=== PATIENT | female | born 1985 | race Caucasian/White ===

== ENCOUNTER 2017-03-07 21:05 | Emergency (ER) | payer MEDICAID ==
[2017-03-07] MEDS ORDERED: Nitroglycerin 0.4 MG Tab.SL ONE (21:18)
[2017-03-07] MEDS ORDERED: Aspirin 81 MG Tab.Chew PO ONE (21:18)
[2017-03-07] MEDS ORDERED: Aspirin 81 MG Tab.Chew ONE (21:18)
--- NOTE | 2017-03-07 21:26 | EDM.PDOC ---
ED HPI GENERAL MEDICAL PROBLEM - General Stated Complaint: CHEST PAIN Time Seen by Provider: 03/07/17 21:05 Source of Information: Reports: Patient History Limitations: Reports: No Limitations - History of Present Illness INITIAL COMMENTS - FREE TEXT/NARRATIVE: Patient presents with chest pain that started at 1300 (8 hours ago). She says it feels like someone is sitting on her chest. She had some left arm pain and now it feels a little numb. She has anxiety and gets panic attacks so she took her Xanax and Klonopin but no help. She has Type II DM. - Related Data Allergies Allergy/AdvReac Type Severity Reaction Status Date / Time aspirin Allergy Acid Reflux Verified 03/07/17 21:33 azithromycin Allergy Hives Verified 03/07/17 21:33 [From Zithromax Z-Walt] Dairy Products Allergy Stomach Verified 03/07/17 21:33 Upset gluten Allergy Abdominal Verified 03/07/17 21:33 Pain Influenza Virus Vaccines Allergy Cannot Verified 03/07/17 21:33 Remember shellfish derived Allergy Anaphylactic Verified 03/07/17 21:33 Shock tramadol Allergy Hives Verified 03/07/17 21:33 Home Meds: Home Meds PNV95/Ferrous Fumarate/FA [ Multivitamins] 1 tab PO DAILY 08/14/14 [ History] Sertraline HCl [Sertraline HCl] 200 mg PO DAILY 08/14/14 [History] Omeprazole [Omeprazole] 20 mg PO BID 10/20/14 [History] rOPINIRole HCl [Requip] 1 mg PO BEDTIME 10/20/14 [History] Albuterol [Ventolin HFA] 2 puff INH Q4H PRN 01/20/15 [History] Ferrous Sulfate 325 mg PO DAILY 01/20/15 [History] Gabapentin [Neurontin] 900 mg PO BID 01/20/15 [History] Loratadine [Claritin] 10 mg PO DAILY 01/20/15 [History] Montelukast Sodium [Singulair] 10 mg PO BEDTIME 01/20/15 [History] Topiramate 25 mg PO DAILY 01/20/15 [History] Topiramate 50 mg PO BEDTIME 01/20/15 [History] Baclofen 5 mg PO TID 08/09/16 [History] risperiDONE [RisperiDAL] 2 mg PO BEDTIME 08/09/16 [History] ALPRAZolam [Xanax] 0.25 mg PO TID PRN 03/07/17 [History] ClonazePAM [KlonoPIN] 0.5 mg PO BID 03/07/17 [History] Past Medical History HEENT History: Reports: Impaired Vision, Otitis Media Cardiovascular History: Reports: Hypertension Respiratory History: Reports: Asthma Gastrointestinal History: Reports: GERD Musculoskeletal History: Reports: Arthritis, Back Pain, Chronic, Neck Pain, Chronic, Other (See Below) Other Musculoskeletal History: trigeminal neuralgia, chronic knee and back pain , restless leg syndrome Neurological History: Reports: Headaches, Chronic, Migraines, Other (See Below) Other Neuro History: trigeminal neuralgia Psychiatric History: Reports: Anxiety, Bipolar, Schizophrenia Hematologic History: Reports: Other (See Below) Other Hematologic History: Patient is a Denominational-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 - Infectious Disease History Infectious Disease History: Reports: Chicken Pox, Influenza - Past Surgical History Head Surgeries/Procedures: Reports: None HEENT Surgical History: Reports: None Respiratory Surgical History: Reports: None GI Surgical History: Reports: None Neurological Surgical History: Reports: None Musculoskeletal Surgical History: Reports: None Social & Family History - Family History Family Medical History: Noncontributory - Tobacco Use Smoking Status *Q: Never Smoker Second Hand Smoke Exposure: No - Caffeine Use Caffeine Use: Reports: Coffee, Soda - Alcohol Use Days Per Week of Alcohol Use: 0 - Recreational Drug Use Recreational Drug Use: No ED ROS GENERAL - Review of Systems Review Of Systems: See Below Constitutional: Denies: Fever, Chills, Diaphoresis HEENT: Denies: Throat Pain, Vision Change Respiratory: Denies: Shortness of Breath, Wheezing, Cough Cardiovascular: Reports: Chest Pain. Denies: Lightheadedness, Syncope GI/Abdominal: Reports: Nausea. Denies: Abdominal Pain, Vomiting : Denies: Dysuria, Flank Pain Musculoskeletal: Reports: Arm Pain (left). Denies: Neck Pain, Shoulder Pain Skin: Denies: Cyanosis, Jaundice, Mottled, Pallor, Diaphoresis Neurological: Denies: Confusion, Dizziness, Headache, Seizure, Syncope, Trouble Speaking Psychiatric: Reports: Anxiety. Denies: Agitation, Confusion ED EXAM, GENERAL - Physical Exam Exam: See Below Exam Limited By: No Limitations General Appearance: Alert, WD/WN, No Apparent Distress Eye Exam: Bilateral Eye: EOMI, Normal Inspection, PERRL Ears: Normal External Exam, Hearing Grossly Normal Nose: Normal Inspection, No Blood Throat/Mouth: Normal Inspection, Normal Lips, Normal Voice, No Airway Compromise Head: Atraumatic, Normocephalic Neck: Normal Inspection, Supple, Non-Tender, Full Range of Motion Respiratory/Chest: No Respiratory Distress, Lungs Clear, Normal Breath Sounds, No Accessory Muscle Use, Other (Palpation over the mid-sternum reproduces her symptom of chest heaviness, she says. There is also some tenderness of the adjacent left anterior ribs.). No: Crackles, Rales, Rhonchi, Wheezing, Stridor Cardiovascular: Regular Rate, Rhythm, No Murmur GI/Abdominal: Normal Bowel Sounds, Soft, Non-Tender, No Organomegaly, No Distention Back Exam: Full Range of Motion. No: CVA Tenderness (L) Extremities: Normal Inspection, Normal Range of Motion, Non-Tender, No Pedal Edema Neurological: Alert, Oriented, Normal Cognition, No Motor/Sensory Deficits Psychiatric: Normal Affect, Normal Mood Skin Exam: Warm, Dry, Intact, Normal Color, No Rash Course - Vital Signs Last Recorded V/S: Last Vital Signs Temp 96 F 03/08/17 01:20 Pulse 75 03/08/17 01:20 Resp 18 03/08/17 01:20 BP 121/80 03/08/17 01:20 Pulse Ox 97 03/08/17 01:20 - Orders/Labs/Meds Labs: Laboratory Tests 03/07/17 03/07/17 03/08/17 Range/Units 21:25 21:25 00:39 WBC 11.2 H (5.0-10.0) 10^3/uL RBC 5.18 (3.80-5.50) 10^6/uL Hgb 15.6 (12.0-16.0) g/dL Hct 45.0 (37.0-47.0) % MCV 86.9 (82.0-92.0) fL MCH 30.0 (27.0-31.0) pg MCHC 34.5 (32.0-36.0) g/dL RDW 12.9 (11.5-14.5) % Plt Count 267 (150-300) 10^3/uL MPV 7.6 (7.4-10.4) fL Neut % (Auto) 74.8 H (50.0-70.0) % Lymph % (Auto) 19.3 L (20.0-40.0) % [place] % (Auto) 4.2 (2.0-8.0) % Eos % (Auto) 1.3 (1.0-3.0) % Baso % (Auto) 0.4 (0.0-1.0) % Neut # (Auto) 8.4 H (2.5-7.0) 10^3/uL Lymph # (Auto) 2.2 (1.0-4.0) 10^3/uL [place] # (Auto) 0.5 (0.1-0.8) 10^3/uL Eos # (Auto) 0.1 (0.1-0.3) 10^3/uL Baso # (Auto) 0.0 (0.0-0.1) 10^3/uL Sodium 140 (136-145) mmol/L Potassium 3.4 (3.3-5.3) mmol/L Chloride 104 (98-115) mmol/L Carbon Dioxide 25.0 (21.0-32.0) mmol/L BUN 8 (6-25) mg/dL Creatinine 1.03 (0.51-1.17) mg/dL Est Cr Clr Drug Dosing 72.52 mL/min Estimated GFR (MDRD) > 60 mL/min Glucose 141 H (70-110) mg/dL Calcium 8.8 (8.7-10.3) mg/dL Troponin I 0.07 0.07 (0.00-0.070) ng/mL Meds: Medications Discontinued Medications Generic Name Dose Route Start Last Admin Trade Name Freq PRN Reason Stop Dose Admin Aspirin 324 mg 03/07/17 21:18 03/07/17 21:25 Aspirin PO 03/07/17 21:19 324 mg ONETIME ONE Administration Aspirin Confirm 03/07/17 21:18 03/07/17 22:39 Aspirin Administered 03/07/17 21:19 Not Given Dose 81 mg .ROUTE .STK-MED ONE Lorazepam 0.5 mg 03/07/17 22:55 Ativan PO ONETIME PRN Anxiety Nitroglycerin 0.4 mg 03/07/17 21:18 03/07/17 21:48 Nitrostat SL 03/07/17 21:29 0.4 mg Q5M PRN Administration Chest Pain Nitroglycerin Confirm 03/07/17 21:18 03/07/17 22:39 Nitrostat Administered 03/07/17 21:19 Not Given Dose 0.4 mg .ROUTE .STK-MED ONE Sodium Chloride 5 ml 03/07/17 22:13 Syrex Flush FLUSH Q8HR PRN Keep Vein Open - Re-Assessments/Exams Free Text/Narrative Re-Assessment/Exam: 03/07/17 22:46 Trop 0.07, EKG shows no ST changes. CXR normal. Patient says the chest pressure was 6/10 on arrival but no pain, then she started to have a little pain which went away with nitro. She now has no pain and the pressure is less than 1/10. We discussed all the findings and I feel this is most likely non- cardiac in etiology. However since it did seem to respond to nitro I recommend keeping her for a second troponin. She is okay with this. She is also a little anxious and will let us know if she wants a dose of Lorazepam while waiting for the second troponin. Pt is stable and says now she has no pressure in her chest. Departure - Departure Time of Disposition: 01:00 (03/08/17) Disposition: Home, Self-Care 01 Condition: Good Clinical Impression: Acute chest wall pain, Anxiety Instructions: Nonspecific Chest Pain, [id number] Referrals: Pilar Escobar COLD MILL SUPERVISOR [Primary Care Provider] - Forms: ED Department Discharge Additional Instructions: 1. Drink 8 cups of water daily. 2. Continue with your anxiety medications as directed. 3. Follow up with your PCP regarding the cardiac questions and possible cardiac referral. 4. Return to ER as needed.
[2017-03-07] MEDS: Nitroglycerin 0.4 MG Tab.SL SL PRN ×2 (21:31→21:48)
[2017-03-07 22:02] LABS: CHLORIDE,CL 104 mmol/L (98-115); SODIUM,NA 140 mmol/L (136-145)
[2017-03-07] MEDS ORDERED: Sodium Chloride 0.9% 5 ML Syringe FLUSH PRN (22:13)
[2017-03-07] MEDS ORDERED: LORazepam 0.5 MG Tab PO PRN (22:55)
[2017-03-08 01:51] VITALS: BP 121/80
== END 2017-03-08 01:33 | disposition home or self-care (01) ==
LOC: KA.ED 21:05
DX: R07.89 Other chest pain (principal); F41.9 Anxiety disorder, unspecified; I10 Essential (primary) hypertension; J45.909 Unspecified asthma, uncomplicated; K21.9 Gastro-esophageal reflux disease without esophagitis; M19.90 Unspecified osteoarthritis, unspecified site; H54.7 Unspecified visual loss; Z79.899 Other long term (current) drug therapy; Z88.1 Allergy status to other antibiotic agents; Z88.8 Allergy status to other drugs, medicaments and biological substances; Z91.011 Allergy to milk products; Z91.013 Allergy to seafood; Z88.2 Allergy status to sulfonamides; Z88.6 Allergy status to analgesic agent
CPT/HCPCS: 36415; 71020; 80048; 84484; 85025; 93005; 99285; A9270

== ENCOUNTER 2017-11-16 17:35 | Emergency (ER) | payer MEDICAID ==
[2017-11-16] MEDS ORDERED: Sodium Chloride 0.9% 1,000 ML IV ONE (17:47)
[2017-11-16] MEDS ORDERED: Dexamethasone 4 MG/ML SDV IVPUSH ONE (17:48)
[2017-11-16] MEDS ORDERED: Ondansetron 4 MG/2 ML SDV IVPUSH ONE (18:07)
[2017-11-16] MEDS ORDERED: Ketorolac 30 MG/ML SDV IVPUSH ONE (18:08)
--- NOTE | 2017-11-16 18:15 | EDM.PDOC ---
ED HPI GENERAL MEDICAL PROBLEM - General Chief Complaint: General Stated Complaint: SWITCHED MEDS IN PAIN Time Seen by Provider: 11/16/17 18:06 Source of Information: Reports: Patient History Limitations: Reports: No Limitations - History of Present Illness INITIAL COMMENTS - FREE TEXT/NARRATIVE: Pt is a 31-year-old female who presents to the emergency department this afternoon with a complaint of facial pain secondary to chronic trigeminal neuralgia and recently has been taken off narcotics. Per patient, she states that the neurologist discontinued hydrocodone and she was seen by her PCP this week and pain has been gradually increasing since. Patient states now that she has nausea, vomiting and diarrhea. Patient is requesting prescription for hydrocodone. Patient is on chronic depression medication, and patient is allergic to tramadol. Patient denies chest pain, shortness of breath, any trauma, fever, difficulty swallowing, abdominal pain, or blood in stool. Onset: Gradual Duration: Day(s): Location: Reports: Face Improves with: Reports: None Worsens with: Reports: Movement Context: Denies: Exercise, Lifting, Sick Contact, Trauma - Related Data Allergies Allergy/AdvReac Type Severity Reaction Status Date / Time aspirin Allergy Acid Reflux Verified 11/16/17 19:21 azithromycin Allergy Hives Verified 11/16/17 19:21 [From Zithromax Z-Walt] Dairy Products Allergy Stomach Verified 11/16/17 19:21 Upset gluten Allergy Abdominal Verified 11/16/17 19:21 Pain Influenza Virus Vaccines Allergy Cannot Verified 11/16/17 19:21 Remember shellfish derived Allergy Anaphylactic Verified 11/16/17 19:21 Shock tramadol Allergy Hives Verified 11/16/17 19:21 Home Meds: Home Meds PNV95/Ferrous Fumarate/FA [ Multivitamins] 1 tab PO DAILY 08/14/14 [ History] Sertraline HCl [Sertraline HCl] 200 mg PO DAILY 08/14/14 [History] Omeprazole [Omeprazole] 20 mg PO BID 10/20/14 [History] rOPINIRole HCl [Requip] 1 mg PO BEDTIME 10/20/14 [History] Albuterol [Ventolin HFA] 2 puff INH Q4H PRN 01/20/15 [History] Ferrous Sulfate 325 mg PO DAILY 01/20/15 [History] Gabapentin [Neurontin] 900 mg PO BID 01/20/15 [History] Loratadine [Claritin] 10 mg PO DAILY 01/20/15 [History] Montelukast Sodium [Singulair] 10 mg PO BEDTIME 01/20/15 [History] Topiramate 25 mg PO DAILY 01/20/15 [History] Topiramate 50 mg PO BEDTIME 01/20/15 [History] Baclofen 5 mg PO TID 08/09/16 [History] risperiDONE [RisperiDAL] 2 mg PO BEDTIME 08/09/16 [History] ALPRAZolam [Xanax] 0.25 mg PO TID PRN 03/07/17 [History] ClonazePAM [KlonoPIN] 0.5 mg PO BID 03/07/17 [History] Past Medical History HEENT History: Reports: Impaired Vision, Otitis Media Cardiovascular History: Reports: Hypertension Other Cardiovascular History: EKG changes indicating past MT Respiratory History: Reports: Asthma Gastrointestinal History: Reports: GERD BEHAVIORAL INTERVENTION SPECIALIST History: Reports: Other (See Below) Other OB/BYN History: uses a diaphragm Musculoskeletal History: Reports: Arthritis, Back Pain, Chronic, Neck Pain, Chronic, Other (See Below) Other Musculoskeletal History: trigeminal neuralgia, chronic knee and back pain , restless leg syndrome Neurological History: Reports: Headaches, Chronic, Migraines, Other (See Below) Other Neuro History: trigeminal neuralgia Psychiatric History: Reports: Anxiety, Bipolar, Schizophrenia Endocrine/Metabolic History: Reports: Diabetes, Type II, Hypothyroidism, Obesity /BMI 30+ Hematologic History: Reports: Other (See Below) Other Hematologic History: Patient is a Sabianism-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 - Infectious Disease History Infectious Disease History: Reports: Chicken Pox, Influenza - Past Surgical History Head Surgeries/Procedures: Reports: None HEENT Surgical History: Reports: None Respiratory Surgical History: Reports: None GI Surgical History: Reports: None Neurological Surgical History: Reports: None Musculoskeletal Surgical History: Reports: None Social & Family History - Family History Family Medical History: Noncontributory - Tobacco Use Smoking Status *Q: Never Smoker Second Hand Smoke Exposure: No - Caffeine Use Caffeine Use: Reports: Coffee, Soda - Alcohol Use Days Per Week of Alcohol Use: 0 - Recreational Drug Use Recreational Drug Use: No ED ROS GENERAL - Review of Systems Review Of Systems: ROS reveals no pertinent complaints other than HPI. Constitutional: Reports: No Symptoms HEENT: Reports: No Symptoms Respiratory: Reports: No Symptoms Cardiovascular: Reports: No Symptoms Endocrine: Reports: No Symptoms GI/Abdominal: Reports: Diarrhea, Nausea, Vomiting. Denies: Abdominal Pain, Bloody Stool, Difficulty Swallowing, Hematemesis, Hematochezia : Reports: No Symptoms Musculoskeletal: Reports: Other (Facial pain) Skin: Reports: No Symptoms Neurological: Reports: Tingling Psychiatric: Reports: Agitation, Anxiety, Depression Hematologic/Lymphatic: Reports: No Symptoms Immunologic: Reports: No Symptoms ED EXAM, GENERAL - Physical Exam Exam: See Below Exam Limited By: No Limitations General Appearance: Alert, WD/WN, Mild Distress Eye Exam: Bilateral Eye: Normal Inspection Nose: Normal Inspection, Normal Mucosa, No Blood Throat/Mouth: Normal Inspection, Normal Lips, Normal Oropharynx, Normal Voice, No Airway Compromise Head: Atraumatic Neck: Normal Inspection, Supple, Non-Tender. No: Lymphadenopathy (L), Lymphadenopathy (R) Respiratory/Chest: No Respiratory Distress, Lungs Clear, Normal Breath Sounds, No Accessory Muscle Use, Chest Non-Tender Cardiovascular: Regular Rate, Rhythm, No Murmur GI/Abdominal: Normal Bowel Sounds, Soft, Non-Tender Extremities: Normal Inspection Neurological: Alert, Oriented, CN II-XII Intact, Normal Cognition, Other ( Exaggerated attempt not to follow directions.) Skin Exam: Warm, Dry, Intact, Normal Color, No Rash Lymphatic: No Adenopathy Course - Orders/Labs/Meds Orders: Active Orders 24 hr Category Date Time Status CBC WITH AUTO DIFF [HEME] Stat Lab 11/16/17 18:06 Ordered COMPREHENSIVE METABOLIC PN,CMP [CHEM] Stat Lab 11/16/17 18:06 Ordered DRUG SCREEN, URINE [URCHEM] Stat Lab 11/16/17 18:06 Ordered QUANTITATIVE BHCG [REF] Stat Lab 11/16/17 18:08 Ordered UA W/MICROSCOPIC [URIN] Stat Lab 11/16/17 18:06 Ordered Sodium Chloride 0.9% [Normal Saline] 1,000 ml Med 11/16/17 17:47 Active IV .BOLUS Medication Orders Sodium Chloride (Normal Saline) 1,000 mls @ 999 mls/hr IV .BOLUS ONE Stop: 11/16/17 18:47 Meds: Medications Generic Name Dose Route Start Last Admin Trade Name Freq PRN Reason Stop Dose Admin Sodium Chloride 1,000 mls @ 999 mls/hr 11/16/17 17:47 Normal Saline IV 11/16/17 18:47 .BOLUS ONE Discontinued Medications Generic Name Dose Route Start Last Admin Trade Name Ana PRN Reason Stop Dose Admin Dexamethasone 8 mg 11/16/17 17:48 Dexamethasone IVPUSH 11/16/17 17:49 ONETIME ONE Ketorolac Tromethamine 30 mg 11/16/17 18:08 Toradol IVPUSH 11/16/17 18:09 ONETIME ONE Ondansetron HCl 4 mg 11/16/17 18:07 Zofran IVPUSH 11/16/17 18:08 ONETIME ONE - Re-Assessments/Exams Free Text/Narrative Re-Assessment/Exam: 11/16/17 19:21 Patient afebrile, nontoxic appearing, vital signs stable, discomfort relieved. Patient acting and speaking appropriately. Patient will follow-up at [facility] tomorrow for consideration of narcotics. Departure - Departure Time of Disposition: 19:22 Disposition: Home, Self-Care 01 Condition: Good Clinical Impression: Medication refill, Drug-seeking behavior, Trigeminal neuralgia - Discharge Information Instructions: Trigeminal Neuralgia, Acute Pain, Adult Referrals: Pilar Escobar INSURANCE UNDERWRITING ASSISTANT [Primary Care Provider] - Forms: ED Department Discharge Additional Instructions: Follow-up at [facility] tomorrow for recheck and prescription consideration. Return to the emergency department sooner if symptoms continue or worsen. - My Orders Last 24 Hours: My Active Orders 11/16/17 17:47 Sodium Chloride 0.9% [Normal Saline] 1,000 ml IV .BOLUS 11/16/17 18:06 CBC WITH AUTO DIFF [HEME] Stat COMPREHENSIVE METABOLIC PN,CMP [CHEM] Stat DRUG SCREEN, URINE [URCHEM] Stat UA W/MICROSCOPIC [URIN] Stat 11/16/17 18:08 QUANTITATIVE BHCG [REF] Stat - Assessment/Plan Last 24 Hours: My Active Orders 11/16/17 17:47 Sodium Chloride 0.9% [Normal Saline] 1,000 ml IV .BOLUS 11/16/17 18:06 CBC WITH AUTO DIFF [HEME] Stat COMPREHENSIVE METABOLIC PN,CMP [CHEM] Stat DRUG SCREEN, URINE [URCHEM] Stat UA W/MICROSCOPIC [URIN] Stat 11/16/17 18:08 QUANTITATIVE BHCG [REF] Stat Assessment:: Medication refill Plan: Follow-up with PCP
[2017-11-16 18:48] LABS: CHLORIDE,CL 100 mmol/L (98-115); SODIUM,NA 136 mmol/L (136-145)
[2017-11-16 19:15] VITALS: BP 128/72
== END 2017-11-16 20:03 | disposition home or self-care (01) ==
LOC: KA.ED 17:35
DX: G50.0 Trigeminal neuralgia (principal); Z76.5 Malingerer [conscious simulation]; Z76.0 Encounter for issue of repeat prescription; I10 Essential (primary) hypertension; E11.9 Type 2 diabetes mellitus without complications; E03.9 Hypothyroidism, unspecified; Z88.6 Allergy status to analgesic agent; Z88.1 Allergy status to other antibiotic agents; Z91.011 Allergy to milk products; Z88.5 Allergy status to narcotic agent; Z91.013 Allergy to seafood; Z79.899 Other long term (current) drug therapy
CPT/HCPCS: 80053; 80305; 81001; 84702; 85025; 96361; 96374; 96375; 99283; J1100; J1885; J2405; J7030

== ENCOUNTER 2017-11-25 17:41 | Emergency (ER) | payer MEDICAID ==
[2017-11-25 18:18] VITALS: BP 129/72
--- NOTE | 2017-11-25 18:28 | EDM.PDOC ---
ED HPI GENERAL MEDICAL PROBLEM - General Chief Complaint: General Stated Complaint: SEIZURE?? Time Seen by Provider: 11/25/17 18:03 Source of Information: Reports: Patient History Limitations: Reports: No Limitations - History of Present Illness INITIAL COMMENTS - FREE TEXT/NARRATIVE: Patient is a 31-year-old female who presents to the emergency department this afternoon with a complaint of suspected seizure. Mother states that she was looking into space, shaking, and this lasted approximately 1-1/2 minutes. Patient has no history of seizures, however, she is bipolar and taking multiple medications. Patient was seen by primary care 2 days ago. This visit was said to be uneventful. Upon presentation, patient had no seizure-like activity, was not post ictal, denies fever, head injury, or similar symptoms in the past. Patient did have intermittent periods of upper extremity shaking, but this resolves when she is in discussion, or sitting up for assessment. Then spontaneously begins again. Does not appear as seizure-like activity. Onset: Today Onset Date: 11/25/17 Onset Time: 15:50 Duration: Minutes:, Resolved Prior to Arrival Severity: Mild Improves with: Reports: None Worsens with: Reports: None Associated Symptoms: Reports: No Other Symptoms - Related Data Allergies Allergy/AdvReac Type Severity Reaction Status Date / Time azithromycin Allergy Hives Verified 11/25/17 17:48 [From Zithromax Z-Walt] Dairy Products Allergy Stomach Verified 11/25/17 17:48 Upset gluten Allergy Abdominal Verified 11/25/17 17:48 Pain Influenza Virus Vaccines Allergy Cannot Verified 11/25/17 17:48 Remember shellfish derived Allergy Anaphylactic Verified 11/25/17 17:48 Shock tramadol Allergy Hives Verified 11/25/17 17:48 Home Meds: Home Meds PNV95/Ferrous Fumarate/FA [ Multivitamins] 1 tab PO DAILY 08/14/14 [ History] Sertraline HCl [Sertraline HCl] 100 mg PO DAILY 08/14/14 [History] Omeprazole [Omeprazole] 40 mg PO BID 10/20/14 [History] rOPINIRole HCl [Requip] 1 mg PO BEDTIME 10/20/14 [History] Albuterol [Ventolin HFA] 2 puff INH Q4H PRN 01/20/15 [History] Ferrous Sulfate 325 mg PO DAILY 05/02/15 [History] Gabapentin [Neurontin] 600 mg PO BID 01/20/15 [History] Montelukast Sodium [Singulair] 10 mg PO BEDTIME 01/20/15 [History] Baclofen 10 mg PO TID 08/09/16 [History] risperiDONE [RisperiDAL] 1 mg PO BEDTIME 08/09/16 [History] ClonazePAM [KlonoPIN] 1 mg PO BID 03/07/17 [History] Aspirin [Halfprin] 81 mg PO DAILY 11/16/17 [History] Phentermine HCl [Phentermine HCl] 30 mg PO DAILY 11/16/17 [History] carBAMazepine [Carbamazepine] 400 mg PO BID 11/16/17 [History] Gabapentin [Neurontin] 300 mg PO BID 11/25/17 [History] Hydrocodone/Acetaminophen [Hydrocodon-Acetaminophn 10-325] 0.5 tab PO DAILY 04/07 [History] Levothyroxine 75 mcg PO ACBREAKFAST 11/25/17 [History] Non-Formulary Medication [NF Drug] 1 applic TOP DAILY 11/25/17 [History] Non-Formulary Medication [NF Drug] 450 mg PO BID 11/25/17 [History] Ondansetron HCl [Ondansetron] 4 mg BUCCAL Q6HR PRN 11/25/17 [History] atorvaSTATin [Lipitor] 10 mg PO BEDTIME 11/25/17 [History] Past Medical History HEENT History: Reports: Impaired Vision, Otitis Media Cardiovascular History: Reports: Hypertension Other Cardiovascular History: EKG changes indicating past [place] Respiratory History: Reports: Asthma Gastrointestinal History: Reports: GERD HOME INSURANCE AGENT History: Reports: Other (See Below) Other OB/BYN History: uses a diaphragm Musculoskeletal History: Reports: Arthritis, Back Pain, Chronic, Neck Pain, Chronic, Other (See Below) Other Musculoskeletal History: trigeminal neuralgia, chronic knee and back pain , restless leg syndrome Neurological History: Reports: Headaches, Chronic, Migraines, Other (See Below) Other Neuro History: trigeminal neuralgia Psychiatric History: Reports: Anxiety, Bipolar, Schizophrenia Endocrine/Metabolic History: Reports: Diabetes, Type II, Hypothyroidism, Obesity /BMI 30+ Hematologic History: Reports: Other (See Below) Other Hematologic History: Patient is a [employer]-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 - Infectious Disease History Infectious Disease History: Reports: Chicken Pox, Influenza - Past Surgical History Head Surgeries/Procedures: Reports: None HEENT Surgical History: Reports: None Respiratory Surgical History: Reports: None GI Surgical History: Reports: None Neurological Surgical History: Reports: None Musculoskeletal Surgical History: Reports: None Social & Family History - Family History Family Medical History: Noncontributory - Tobacco Use Smoking Status *Q: Never Smoker Second Hand Smoke Exposure: No - Caffeine Use Caffeine Use: Reports: Coffee, Soda - Alcohol Use Days Per Week of Alcohol Use: 0 - Recreational Drug Use Recreational Drug Use: No ED ROS GENERAL - Review of Systems Review Of Systems: ROS reveals no pertinent complaints other than HPI. Constitutional: Reports: No Symptoms HEENT: Reports: No Symptoms Respiratory: Reports: No Symptoms Cardiovascular: Reports: No Symptoms Endocrine: Reports: No Symptoms GI/Abdominal: Reports: No Symptoms : Reports: No Symptoms Musculoskeletal: Reports: No Symptoms Skin: Reports: No Symptoms Neurological: Reports: Seizure (Pseudo-) Psychiatric: Reports: Anxiety. Denies: Homicidal Ideation, Suicidal Ideation Hematologic/Lymphatic: Reports: No Symptoms Immunologic: Reports: No Symptoms ED EXAM, GENERAL - Physical Exam Exam: See Below Exam Limited By: No Limitations General Appearance: Alert, WD/WN, No Apparent Distress Eye Exam: Bilateral Eye: Normal Inspection Nose: Normal Inspection, Normal Mucosa, No Blood Throat/Mouth: Normal Inspection, Normal Oropharynx, No Airway Compromise Head: Atraumatic, Normocephalic Neck: Normal Inspection Respiratory/Chest: No Respiratory Distress, Lungs Clear, Normal Breath Sounds, No Accessory Muscle Use, Chest Non-Tender Cardiovascular: Regular Rate, Rhythm, No Murmur GI/Abdominal: Normal Bowel Sounds, Soft, Non-Tender Back Exam: Normal Inspection. No: CVA Tenderness (L), CVA Tenderness (R) Extremities: Normal Inspection Neurological: Alert, Oriented, CN II-XII Intact, Normal Cognition, No Motor/ Sensory Deficits Psychiatric: Anxious Skin Exam: Warm, Dry, Intact, Normal Color, No Rash Course - Vital Signs Last Recorded V/S: Last Vital Signs Temp 96.5 F 11/25/17 18:13 Pulse 93 11/25/17 18:13 Resp 18 11/25/17 18:13 BP 129/72 11/25/17 18:13 Pulse Ox 97 11/25/17 18:13 - Orders/Labs/Meds Orders: Active Orders 24 hr Category Date Time Status CBC WITH AUTO DIFF [HEME] Stat Lab 11/25/17 18:05 Ordered COMPREHENSIVE METABOLIC PN,CMP [CHEM] Stat Lab 11/25/17 18:05 Ordered DRUG SCREEN, URINE [URCHEM] Stat Lab 11/25/17 18:06 Ordered QUANTITATIVE BHCG [REF] Stat Lab 11/25/17 18:06 Ordered UA W/MICROSCOPIC [URIN] Stat Lab 11/25/17 18:05 Ordered - Re-Assessments/Exams Free Text/Narrative Re-Assessment/Exam: 11/25/17 18:59 Patient afebrile, nontoxic appearing, vital signs stable. No seizure activity while in emergency department. Mother states that patient has been under stress lately, which she states may attribute to activity. She also recently been taken off narcotics. Patient will follow-up at [facility] for consideration of medication. Departure - Departure Time of Disposition: 19:00 Disposition: Home, Self-Care 01 Condition: Good Clinical Impression: Trigeminal neuralgia, Anxiety, Bipolar 1 disorder - Discharge Information Instructions: Trigeminal Neuralgia, Bipolar 1 Disorder, Generalized Anxiety Disorder, Adult Referrals: Pilar Escobar MANAGING DIRECTOR [Primary Care Provider] - Forms: ED Department Discharge Additional Instructions: Follow-up at [facility] in 1-2 days. Return to emergency department sooner if symptoms continue or worsen - My Orders Last 24 Hours: My Active Orders 11/25/17 18:05 CBC WITH AUTO DIFF [HEME] Stat COMPREHENSIVE METABOLIC PN,CMP [CHEM] Stat UA W/MICROSCOPIC [URIN] Stat 11/25/17 18:06 DRUG SCREEN, URINE [URCHEM] Stat QUANTITATIVE BHCG [REF] Stat - Assessment/Plan Last 24 Hours: My Active Orders 11/25/17 18:05 CBC WITH AUTO DIFF [HEME] Stat COMPREHENSIVE METABOLIC PN,CMP [CHEM] Stat UA W/MICROSCOPIC [URIN] Stat 11/25/17 18:06 DRUG SCREEN, URINE [URCHEM] Stat QUANTITATIVE BHCG [REF] Stat Assessment:: Anxiety, bipolar Plan: Follow-up at [facility] in 1-2 days
[2017-11-25 18:54] LABS: CHLORIDE,CL 101 mmol/L (98-115); SODIUM,NA 138 mmol/L (136-145)
== END 2017-11-25 19:30 | disposition home or self-care (01) ==
LOC: KA.ED 17:41
DX: G50.0 Trigeminal neuralgia (principal); F41.9 Anxiety disorder, unspecified; F31.9 Bipolar disorder, unspecified; I10 Essential (primary) hypertension; K21.9 Gastro-esophageal reflux disease without esophagitis; I25.2 Old myocardial infarction; J45.909 Unspecified asthma, uncomplicated; Z79.82 Long term (current) use of aspirin; Z88.1 Allergy status to other antibiotic agents; Z91.013 Allergy to seafood; Z79.899 Other long term (current) drug therapy
CPT/HCPCS: 36415; 80053; 80305; 81001; 84702; 85025; 99284

== ENCOUNTER 2020-01-07 21:08 | Emergency (ER) | payer MEDICAID ==
--- NOTE | 2020-01-07 21:16 | EDM.PDOC ---
ED HPI GENERAL MEDICAL PROBLEM - General Chief Complaint: REFERENCE DATA EXPERT Problem Stated Complaint: contractions Time Seen by Provider: 01/07/20 21:16 Source of Information: Reports: Patient - History of Present Illness INITIAL COMMENTS - FREE TEXT/NARRATIVE: Intermittent cramping this afternoon evening. Contacted REFERENCE DATA EXPERT in [facility], was advised to seek emergency department evaluation. Underwent ultrasound last December which was stated small for gestational age 4 pound, mucous plug had moved. Reviews previous delivered 29 weeks was induced due to preeclampsia. Has been noting slight climbing of blood pressure in the past 2 weeks but not critical value. 2 para 1, delivered prematurely via induction, living doing well. Onset: Today Duration: Hour(s):, Getting Worse, Recurring Location: Reports: Abdomen, Pelvis Quality: Reports: Pressure Severity: Moderate Context: Reports: Activity Associated Symptoms: Reports: No Other Symptoms - Related Data Allergies Allergy/AdvReac Type Severity Reaction Status Date / Time azithromycin Allergy Hives Verified 01/07/20 21:11 [From Zithromax Z-Walt] Dairy Products Allergy Stomach Verified 01/07/20 21:11 Upset gluten Allergy Abdominal Verified 01/07/20 21:11 Pain Influenza Virus Vaccines Allergy Cannot Verified 01/07/20 21:11 Remember shellfish derived Allergy Anaphylactic Verified 01/07/20 21:11 Shock tramadol Allergy Hives Verified 01/07/20 21:11 Home Meds: Home Meds PNV95/Ferrous Fumarate/FA [ Multivitamins] 1 tab PO DAILY 08/14/14 [ History] Albuterol [Ventolin HFA] 2 puff INH Q4H PRN 01/20/15 [History] Ferrous Sulfate 325 mg PO DAILY 01/20/15 [History] Gabapentin [Neurontin] 600 mg PO BID 01/20/15 [History] Baclofen 10 mg PO TID 08/09/16 [History] ClonazePAM [KlonoPIN] 1 mg PO BID 03/07/17 [History] Aspirin [Halfprin] 81 mg PO DAILY 11/16/17 [History] Gabapentin [Neurontin] 300 mg PO BID 11/25/17 [History] Hydrocodone/Acetaminophen [Hydrocodon-Acetaminophn 10-325] 0.5 tab PO DAILY 04/07 [History] ondansetron HCL [Ondansetron] 4 mg BUCCAL Q6HR PRN 11/25/17 [History] Albuterol Sulfate [Proair Hfa] 2 puff IH Q4H 01/07/20 [History] Cholecalciferol (Vitamin D3) [Vitamin D3] 4,000 unit PO 01/07/20 [History] Famotidine [Pepcid] 20 mg PO DAILY 01/07/20 [History] Ferrous Sulfate [Iron] 325 mg PO DAILY 01/07/20 [History] Fluticasone Propionate [Flonase] 2 sprays NS BID 01/07/20 [History] Fluticasone/Salmeterol [Advair 500-50] 1 puff INH DAILY 01/07/20 [History] Levothyroxine Sodium 88 mcg PO DAILY 01/07/20 [History] Loratadine [Claritin] 10 mg PO DAILY 01/07/20 [History] buPROPion HCL [Bupropion Xl] 300 mg PO DAILY 01/07/20 [History] metFORMIN HCl [Metformin HCl] 500 mg PO BID 01/07/20 [History] Past Medical History HEENT History: Reports: Impaired Vision, Otitis Media Cardiovascular History: Reports: Hypertension Other Cardiovascular History: EKG changes indicating past [facility] Respiratory History: Reports: Asthma Gastrointestinal History: Reports: GERD Genitourinary History: Reports: None REFERENCE DATA EXPERT History: Reports: Polycystic Ovaries, , Other (See Below) : 2 Para: 1 (Due date 01 March 2020) Other REFERENCE DATA EXPERT History: uses a diaphragm Musculoskeletal History: Reports: Arthritis, Back Pain, Chronic, Neck Pain, Chronic, Other (See Below) Other Musculoskeletal History: trigeminal neuralgia, chronic knee and back pain , restless leg syndrome Neurological History: Reports: Headaches, Chronic, Migraines, Other (See Below) Other Neuro History: trigeminal neuralgia Psychiatric History: Reports: Anxiety, Bipolar, Schizophrenia Endocrine/Metabolic History: Reports: Diabetes, Type II, Hypothyroidism, Obesity /BMI 30+ Hematologic History: Reports: Other (See Below) Other Hematologic History: Patient is a [employer]-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 - Infectious Disease History Infectious Disease History: Reports: Chicken Pox, Influenza - Past Surgical History Head Surgeries/Procedures: Reports: None HEENT Surgical History: Reports: None Respiratory Surgical History: Reports: None GI Surgical History: Reports: None Neurological Surgical History: Reports: None Musculoskeletal Surgical History: Reports: None Social & Family History - Family History Family Medical History: Noncontributory - Caffeine Use Caffeine Use: Reports: Coffee, Soda ED ROS GENERAL - Review of Systems Review Of Systems: Comprehensive ROS is negative, except as noted in HPI. ED EXAM, GENERAL - Physical Exam Exam: See Below General Appearance: Alert, WD/WN, No Apparent Distress Ears: Normal External Exam, Normal Canal Nose: Normal Inspection, Normal Mucosa Throat/Mouth: Normal Inspection, Normal Lips, Normal Oropharynx Head: Atraumatic, Normocephalic Neck: Normal Inspection, Non-Tender, Full Range of Motion Respiratory/Chest: No Respiratory Distress, Lungs Clear, Normal Breath Sounds, No Accessory Muscle Use, Chest Non-Tender Cardiovascular: Normal Peripheral Pulses, Regular Rate, Rhythm, No Edema, No Gallop, No JVD, No Murmur, No Rub GI/Abdominal: Normal Bowel Sounds, Soft, Other (Gravid abdomen) (Female) Exam: Normal External Exam, Normal Speculum Exam (Cervix OS, is closed, there is some creamy type discharge which may be from her vaginal cream. There appears to be what could be HPV lesion to the 3 o'clock position of the os, nonfriable no bleeding. No malodorous presentation.), Normal Bimanual Exam (No tenderness mild pressure sensation.), Enlarged Uterus, Heart Tones (C documented report) Rectal (Female) Exam: Deferred Extremities: Normal Inspection, Normal Range of Motion, Non-Tender Neurological: Alert, Oriented, CN II-XII Intact, Normal Cognition, Normal Gait, Normal Reflexes, No Motor/Sensory Deficits Psychiatric: Normal Affect, Normal Mood Skin Exam: Warm, Dry, Intact, Normal Color, No Rash Lymphatic: No Adenopathy Course - Vital Signs Last Recorded V/S: Last Vital Signs Temp 35.3 C L 01/07/20 22:44 Pulse 78 01/07/20 22:57 Resp 18 01/07/20 22:57 BP 151/70 H 01/07/20 22:57 Pulse Ox 99 01/07/20 22:57 - Orders/Labs/Meds Orders: Active Orders 24 hr Category Date Time Status Sodium Chloride 0.9% [Normal Saline] 1,000 ml Med 01/07/20 22:00 Active IV ASDIRECTED Sodium Chloride 0.9% [Saline Flush] Med 01/07/20 21:40 Active 10 ml FLUSH Q8HR PRN Saline Lock Insert [OM.PC] Stat Oth 01/07/20 21:40 Ordered Medication Orders Sodium Chloride (Normal Saline) 1,000 mls @ 250 mls/hr IV ASDIRECTED MARGARETTE Last Admin: 01/07/20 22:04 Dose: 250 mls/hr Sodium Chloride (Saline Flush) 10 ml FLUSH Q8HR PRN PRN Reason: keep vein open Labs: Laboratory Tests 01/07/20 01/07/20 01/07/20 Range/Units 21:30 21:50 21:50 WBC 10.70 H (5.00-10.00) 10^3/uL RBC 4.21 (3.80-5.50) 10^6/uL Hgb 12.9 (12.0-16.0) g/dL Hct 36.3 L (37.0-47.0) % MCV 86.2 (82.0-92.0) fL MCH 30.6 (27.0-31.0) pg MCHC 35.5 (32.0-36.0) g/dL RDW 13.2 (11.5-14.5) % Plt Count 133 L (150-400) 10^3/uL MPV 10.9 H (7.4-10.4) fL Immature Gran % (Auto) 0.3 (0.0-5.0) % Neut % (Auto) 76.0 H (50.0-70.0) % Lymph % (Auto) 17.1 L (20.0-40.0) % [place] % (Auto) 5.7 (2.0-8.0) % Eos % (Auto) 0.7 L (1.0-3.0) % Baso % (Auto) 0.2 (0.0-1.0) % Immature Gran # (Auto) 0.03 (0.00-0.50) 10^3/uL Neut # (Auto) 8.13 H (2.50-7.00) 10^3/uL Lymph # (Auto) 1.83 (1.00-4.00) 10^3/uL [place] # (Auto) 0.61 (0.10-0.80) 10^3/uL Eos # (Auto) 0.08 L (0.10-0.30) 10^3/uL Baso # (Auto) 0.02 (0.00-0.10) 10^3/uL Sodium 137 (136-145) mmol/L Potassium 3.4 (3.3-5.3) mmol/L Chloride 102 (98-115) mmol/L Carbon Dioxide 23.3 (21.0-32.0) mmol/L Anion Gap 15.1 H (5-15) mmol/L BUN 4 L (6-25) mg/dL Creatinine 0.55 (0.51-1.17) mg/dL Est Cr Clr Drug Dosing 132.14 mL/min Estimated GFR (MDRD) > 60 mL/min Glucose 90 (75 - 99) mg/dL Calcium 8.7 (8.7-10.3) mg/dL Total Bilirubin 0.2 (0.2-1.0) mg/dL AST 16 (15-37) U/L ALT 32 (12-78) U/L Alkaline Phosphatase 110 (46-116) IU/L Total Protein 6.5 (6.4-8.2) g/dL Albumin 2.60 L (3.00-4.80) g/dL Specimen Type Urinvoid Urine Color Yellow (YELLOW) Urine Appearance Clear (CLEAR) Urine pH 6.5 (5.0-9.0) Ur Specific [place] 1.015 (1.005-1.030) Urine Protein Negative (NEGATIVE) mg/dL Urine Glucose (UA) Negative (NEGATIVE) mg/dL Urine Ketones Negative (NEGATIVE) mg/dL Urine Occult Blood Negative (NEGATIVE) Urine Nitrite Negative (NEGATIVE) Urine Bilirubin Negative (NEGATIVE) Urine Urobilinogen 0.2 (0.2-1.0) E.U./dL Ur Leukocyte Esterase Negative (NEGATIVE) Urine RBC 0-5 (0-5) /HPF Urine WBC 0-5 (0-5) /HPF Ur Epithelial Cells Few /LPF Urine Bacteria Few (NONE TO FEW) /HPF Meds: Medications Generic Name Dose Route Start Last Admin Trade Name Freq PRN Reason Stop Dose Admin Sodium Chloride 1,000 mls @ 250 mls/hr 01/07/20 22:00 01/07/20 22:04 Normal Saline IV 250 mls/hr ASDIRECTED MARGARETTE Administration Sodium Chloride 10 ml 01/07/20 21:40 Saline Flush FLUSH Q8HR PRN keep vein open - Re-Assessments/Exams Free Text/Narrative Re-Assessment/Exam: 01/07/20 23:19 Resolution of headache with IV fluid. Assured of adequate heart rate and no evidence of continuous labor. Likely Alex Jean which seemed to resolve after IV fluid. Departure - Departure Time of Disposition: 23:20 Disposition: Home, Self-Care 01 Condition: Good Clinical Impression: Alex Jean contractions, Third trimester - Discharge Information *PRESCRIPTION DRUG MONITORING PROGRAM REVIEWED*: Not Applicable *COPY OF PRESCRIPTION DRUG MONITORING REPORT IN PATIENT WINNIE: Not Applicable Referrals: Shashi Santizo MD [Primary Care Provider] - Forms: ED Department Discharge Additional Instructions: Make sure you maintain fluid hydration. Continue to remain in contact with your REFERENCE DATA EXPERT to discuss your third trimester care and plan for delivery. Continue with medications as directed and dietary instructions as provided to you. Call or return if symptoms worsen or recur any concerning fashion. Rest avoid any straining, or lifting. Sepsis Event Note - Focused Exam Vital Signs: Vital Signs Temp Pulse Resp BP Pulse Ox 01/07/20 22:57 78 18 151/70 H 99 01/07/20 22:44 35.3 C L 82 20 146/88 H 98 01/07/20 22:40 78 20 146/74 H 98 01/07/20 22:06 35.2 C L 87 140/75 98 Date Exam was Performed: 01/07/20 Time Exam was Performed: 23:16 - Problem List & Annotations (1) Third trimester SNOMED Code(s): 42563223 Code(s): Z34.93 - ENCNTR FOR SUPRVSN OF NORMAL PREG, UNSP, THIRD TRIMESTER Status: Chronic Priority: Medium (2) Gilbert Jean contractions SNOMED Code(s): 31564555 Code(s): O47.9 - FALSE LABOR, UNSPECIFIED Status: Acute Priority: Medium - Problem List Review Problem List Initiated/Reviewed/Updated: Yes - My Orders Last 24 Hours: My Active Orders 01/07/20 21:40 Sodium Chloride 0.9% [Saline Flush] 10 ml FLUSH Q8HR PRN Saline Lock Insert [OM.PC] Stat 01/07/20 22:00 Sodium Chloride 0.9% [Normal Saline] 1,000 ml IV ASDIRECTED - Assessment/Plan Last 24 Hours: My Active Orders 01/07/20 21:40 Sodium Chloride 0.9% [Saline Flush] 10 ml FLUSH Q8HR PRN Saline Lock Insert [OM.PC] Stat 01/07/20 22:00 Sodium Chloride 0.9% [Normal Saline] 1,000 ml IV ASDIRECTED Plan: Make sure you maintain fluid hydration. Continue to remain in contact with your REFERENCE DATA EXPERT to discuss your third trimester care and plan for delivery. Continue with medications as directed and dietary instructions as provided to you. Call or return if symptoms worsen or recur any concerning fashion. Rest avoid any straining, or lifting.
[2020-01-07] MEDS ORDERED: Sodium Chloride 0.9% 10 ML Syringe FLUSH PRN (21:40)
[2020-01-07] MEDS ORDERED: Sodium Chloride 0.9% 1,000 ML IV SCH (22:00)
[2020-01-07 22:25] LABS: ANION GAP 15.1 mmol/L (5-15); CHLORIDE,CL 102 mmol/L (98-115); SODIUM,NA 137 mmol/L (136-145)
[2020-01-07 22:57] VITALS: BP 151/70; PULSE 78
== END 2020-01-07 23:20 | disposition home or self-care (01) ==
LOC: SUPCPDRO 21:08 → KA.ED 21:08
DX: O47.03 False labor before 37 completed weeks of gestation, third trimester (principal); O16.3 Unspecified maternal hypertension, third trimester; O99.513 Diseases of the respiratory system complicating pregnancy, third trimester; J45.909 Unspecified asthma, uncomplicated; O99.613 Diseases of the digestive system complicating pregnancy, third trimester; K21.9 Gastro-esophageal reflux disease without esophagitis; M19.90 Unspecified osteoarthritis, unspecified site; O99.343 Other mental disorders complicating pregnancy, third trimester; F41.9 Anxiety disorder, unspecified; F32.9 Major depressive disorder, single episode, unspecified; O24.113 Pre-existing type 2 diabetes mellitus, in pregnancy, third trimester; E11.9 Type 2 diabetes mellitus without complications; O99.283 Endocrine, nutritional and metabolic diseases complicating pregnancy, third trimester; E03.9 Hypothyroidism, unspecified; O99.213 Obesity complicating pregnancy, third trimester; Z68.43 Body mass index [BMI] 50.0-59.9, adult; Z88.1 Allergy status to other antibiotic agents; Z88.7 Allergy status to serum and vaccine; Z88.5 Allergy status to narcotic agent; Z91.013 Allergy to seafood; Z91.018 Allergy to other foods; Z91.011 Allergy to milk products; Z79.82 Long term (current) use of aspirin; Z79.899 Other long term (current) drug therapy; Z79.84 Long term (current) use of oral hypoglycemic drugs; Z3A.32 32 weeks gestation of pregnancy
CPT/HCPCS: 80053; 81001; 85025; 87070; 87205; 96360; 99284; J7030

== ENCOUNTER 2020-01-23 19:30 | Emergency (ER) | payer MEDICAID ==
--- NOTE | 2020-01-23 20:10 | EDM.PDOC ---
ED HPI GENERAL MEDICAL PROBLEM - General Chief Complaint: General Stated Complaint: hypertension Time Seen by Provider: 01/23/20 19:45 Source of Information: Reports: Patient History Limitations: Reports: No Limitations - History of Present Illness INITIAL COMMENTS - FREE TEXT/NARRATIVE: 34 YO WF 34 week IUP induced at 29 weeks secondary to pre-eclampsia who was instructed to come to ER by SENIOR VICE PRESIDENT AND CHIEF INFORMATION OFFICER for evaluation of possible hypertension. Pt reports systolic BP has been in the 140's with mild headache. Pt has had weekly biophysical exams and has had BP's as high as 150 systolic and patient is on bedrest with planned induction on 02/10/2020. Pt denies abdominal pain, vaginal bleeding or discharge, no shortness of breath. Pt reports drinking plenty of fluids >64 oz/day. Pt denies fever/chills. Pt with some nausea but denies vomiting or decreased PO intake. Pt with PMH of NIDDM, and obesity. Pt has an appointment with OB on 01/25/2020. Onset: Unknown/Unsure Duration: Week(s): (6) Location: Reports: Head, Generalized Quality: Reports: Ache Severity: Mild Improves with: Reports: None Worsens with: Reports: None Associated Symptoms: Reports: No Other Symptoms Treatments TELEVISION INSTALLER: Reports: Acetaminophen Headache Pain Score (Numeric/FACES): 7 Lower Back Pain Score (Numeric/FACES): 5 - Related Data Allergies Allergy/AdvReac Type Severity Reaction Status Date / Time azithromycin Allergy Hives Verified 01/23/20 20:07 [From Zithromax Z-Walt] Dairy Products Allergy Stomach Verified 01/23/20 20:07 Upset gluten Allergy Abdominal Verified 01/23/20 20:07 Pain Influenza Virus Vaccines Allergy Cannot Verified 01/23/20 20:07 Remember shellfish derived Allergy Anaphylactic Verified 01/23/20 20:07 Shock tramadol Allergy Hives Verified 01/23/20 20:07 Home Meds: Home Meds PNV95/Ferrous Fumarate/FA [ Multivitamins] 1 tab PO DAILY 08/14/14 [ History] Albuterol [Ventolin HFA] 2 puff INH Q4H PRN 01/20/15 [History] ondansetron HCL [Ondansetron] 4 mg BUCCAL Q6HR PRN 11/25/17 [History] Albuterol Sulfate [Proair Hfa] 2 puff IH Q4H 01/07/20 [History] Cholecalciferol (Vitamin D3) [Vitamin D3] 4,000 unit PO DAILY 01/07/20 [History] Famotidine [Pepcid] 20 mg PO DAILY 01/07/20 [History] Ferrous Sulfate [Iron] 325 mg PO DAILY 01/07/20 [History] Fluticasone Propionate [Flonase] 2 sprays NS BID 01/07/20 [History] Fluticasone/Salmeterol [Advair 500-50] 1 puff INH DAILY 01/07/20 [History] Levothyroxine Sodium 88 mcg PO DAILY 01/07/20 [History] Loratadine [Claritin] 10 mg PO DAILY 01/07/20 [History] buPROPion HCL [Bupropion Xl] 450 mg PO DAILY 01/07/20 [History] metFORMIN HCl [Metformin HCl] 500 mg PO BID 01/07/20 [History] Past Medical History HEENT History: Reports: Impaired Vision, Otitis Media Cardiovascular History: Reports: Hypertension Other Cardiovascular History: EKG changes indicating past [place] Respiratory History: Reports: Asthma Gastrointestinal History: Reports: GERD Genitourinary History: Reports: None SENIOR VICE PRESIDENT AND CHIEF INFORMATION OFFICER History: Reports: Polycystic Ovaries, , Other (See Below) Other SENIOR VICE PRESIDENT AND CHIEF INFORMATION OFFICER History: uses a diaphragm Musculoskeletal History: Reports: Arthritis, Back Pain, Chronic, Neck Pain, Chronic, Other (See Below) Other Musculoskeletal History: trigeminal neuralgia, chronic knee and back pain , restless leg syndrome Neurological History: Reports: Headaches, Chronic, Migraines, Other (See Below) Other Neuro History: trigeminal neuralgia Psychiatric History: Reports: Anxiety, Bipolar, Schizophrenia Endocrine/Metabolic History: Reports: Diabetes, Type II, Hypothyroidism, Obesity /BMI 30+ Hematologic History: Reports: Other (See Below) Other Hematologic History: 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 - Infectious Disease History Infectious Disease History: Reports: Chicken Pox, Influenza - Past Surgical History Head Surgeries/Procedures: Reports: None HEENT Surgical History: Reports: None Respiratory Surgical History: Reports: None GI Surgical History: Reports: None Neurological Surgical History: Reports: None Musculoskeletal Surgical History: Reports: None Social & Family History - Family History Family Medical History: Noncontributory - Caffeine Use Caffeine Use: Reports: Coffee, Soda ED ROS GENERAL - Review of Systems Review Of Systems: See Below Constitutional: Reports: No Symptoms HEENT: Reports: No Symptoms Respiratory: Reports: No Symptoms Cardiovascular: Reports: No Symptoms Endocrine: Reports: Fatigue GI/Abdominal: Reports: Nausea : Reports: No Symptoms Musculoskeletal: Reports: No Symptoms Skin: Reports: No Symptoms Neurological: Reports: Headache. Denies: Confusion, Dizziness, Numbness, Paresthesia, Seizure, Trouble Speaking, Difficulty Walking, Weakness, Change in Speech, Gait Disturbance Psychiatric: Reports: No Symptoms Hematologic/Lymphatic: Reports: No Symptoms Immunologic: Reports: No Symptoms ED EXAM, GENERAL - Physical Exam Exam: See Below Exam Limited By: No Limitations General Appearance: Alert, WD/WN, No Apparent Distress Eye Exam: Bilateral Eye: EOMI, PERRL Throat/Mouth: Normal Inspection, Normal Lips, Normal Teeth, Normal Gums, Normal Oropharynx, Normal Voice, No Airway Compromise Head: Atraumatic, Normocephalic Neck: Normal Inspection, Supple, Non-Tender, Full Range of Motion Respiratory/Chest: No Respiratory Distress, Lungs Clear, Normal Breath Sounds, No Accessory Muscle Use, Chest Non-Tender Cardiovascular: Normal Peripheral Pulses, Regular Rate, Rhythm, No Edema, No Gallop, No JVD, No Murmur, No Rub GI/Abdominal: Normal Bowel Sounds, Soft, Non-Tender, No Organomegaly, No Distention, No Abnormal Bruit, No Mass Back Exam: Normal Inspection, Full Range of Motion, NT Extremities: Normal Inspection, Normal Range of Motion, Non-Tender, Normal Capillary Refill, No Pedal Edema Neurological: Alert, Oriented, CN II-XII Intact, Normal Cognition, Normal Gait, Normal Reflexes, No Motor/Sensory Deficits Psychiatric: Normal Affect, Normal Mood Skin Exam: Warm, Dry, Intact, Normal Color, No Rash Lymphatic: No Adenopathy Course - Vital Signs Last Recorded V/S: Last Vital Signs Temp 36.1 C 01/23/20 20:08 Pulse 81 01/23/20 20:08 Resp 20 01/23/20 20:08 BP 148/75 H 01/23/20 20:08 Pulse Ox 97 01/23/20 20:08 - Orders/Labs/Meds Labs: Laboratory Tests 01/23/20 01/23/20 01/23/20 Range/Units 20:00 20:00 20:00 WBC 12.36 H (5.00-10.00) 10^3/uL RBC 4.24 (3.80-5.50) 10^6/uL Hgb 13.1 (12.0-16.0) g/dL Hct 37.0 (37.0-47.0) % MCV 87.3 (82.0-92.0) fL MCH 30.9 (27.0-31.0) pg MCHC 35.4 (32.0-36.0) g/dL RDW 13.0 (11.5-14.5) % Plt Count 153 (150-400) 10^3/uL MPV 10.6 H (7.4-10.4) fL Immature Gran % (Auto) 0.2 (0.0-5.0) % Neut % (Auto) 78.7 H (50.0-70.0) % Lymph % (Auto) 16.1 L (20.0-40.0) % [place] % (Auto) 4.4 (2.0-8.0) % Eos % (Auto) 0.4 L (1.0-3.0) % Baso % (Auto) 0.2 (0.0-1.0) % Neut # (Auto) 9.72 H (2.50-7.00) 10^3/uL Lymph # (Auto) 1.99 (1.00-4.00) 10^3/uL [place] # (Auto) 0.54 (0.10-0.80) 10^3/uL Eos # (Auto) 0.05 L (0.10-0.30) 10^3/uL Baso # (Auto) 0.03 (0.00-0.10) 10^3/uL Immature Gran # (Auto) 0.03 (0.00-0.50) 10^3/uL Sodium 140 (136-145) mmol/L Potassium 3.6 (3.3-5.3) mmol/L Chloride 103 (98-115) mmol/L Carbon Dioxide 23.2 (21.0-32.0) mmol/L Anion Gap 17.4 H (5-15) mmol/L BUN 7 (6-25) mg/dL Creatinine 0.57 (0.51-1.17) mg/dL Est Cr Clr Drug Dosing 127.50 mL/min Estimated GFR (MDRD) > 60 mL/min Glucose 97 (75 - 99) mg/dL Calcium 9.5 (8.7-10.3) mg/dL Total Bilirubin 0.3 (0.2-1.0) mg/dL AST 12 L (15-37) U/L ALT 27 (12-78) U/L Alkaline Phosphatase 117 H (46-116) IU/L Total Protein 6.8 (6.4-8.2) g/dL Albumin 2.72 L (3.00-4.80) g/dL Specimen Type Urincc Urine Color Yellow (YELLOW) Urine Appearance Slightly cloudy H (CLEAR) Urine pH 5.5 (5.0-9.0) Ur Specific [place] 1.025 (1.005-1.030) Urine Protein Negative (NEGATIVE) mg/dL Urine Glucose (UA) Negative (NEGATIVE) mg/dL Urine Ketones Trace H (NEGATIVE) mg/dL Urine Occult Blood Negative (NEGATIVE) Urine Nitrite Negative (NEGATIVE) Urine Bilirubin Negative (NEGATIVE) Urine Urobilinogen 0.2 (0.2-1.0) E.U./dL Ur Leukocyte Esterase Negative (NEGATIVE) Meds: Medications Discontinued Medications Generic Name Dose Route Start Last Admin Trade Name Freq PRN Reason Stop Dose Admin Ondansetron HCl 4 mg 01/23/20 20:26 01/23/20 20:34 Zofran Odt PO 01/23/20 20:27 4 mg ONETIME ONE Administration Ondansetron HCl 12 mg 01/23/20 20:26 01/23/20 20:34 Zofran Odt PO 01/23/20 20:27 8 mg ONETIME ONE Administration - Radiology Interpretation Free Text/Narrative:: [id number] Departure - Departure Time of Disposition: 20:42 Disposition: Home, Self-Care 01 Condition: Good Clinical Impression: Hypertension screening, Medication refill, Third trimester - Discharge Information Instructions: Warning Signs During , Signs and Symptoms of Labor, Tests and Screening During Referrals: Shashi Santizo MD [Physician] - Forms: ED Department Discharge Sepsis Event Note - Focused Exam Vital Signs: Vital Signs Temp Pulse Resp BP Pulse Ox 01/23/20 20:08 36.1 C 81 20 148/75 H 97 Date Exam was Performed: 01/23/20 Time Exam was Performed: 20:42 - Assessment/Plan Assessment:: 1. Intrauterine 2. mild generalized headache 3. borderline hypertension without evidence of preeclampsia Plan: 1. discharge home 2. continue bedrest 3. Zofran 4mg ODT 3 times/day as needed #3 4. follow up with OB as scheduled 01/26/2020 5. return to ER for worsening symptoms
[2020-01-23] MEDS: Ondansetron 4 MG Tab.DIS PO ONE ×2 (20:34)
[2020-01-23 20:36] LABS: ANION GAP 17.4 mmol/L (5-15); CHLORIDE,CL 103 mmol/L (98-115); SODIUM,NA 140 mmol/L (136-145)
[2020-01-24 01:04] VITALS: BP 142/83; PULSE 84
== END 2020-01-23 20:55 | disposition home or self-care (01) ==
LOC: KA.ED 19:30
DX: O10.913 Unspecified pre-existing hypertension complicating pregnancy, third trimester (principal); J45.909 Unspecified asthma, uncomplicated; K21.9 Gastro-esophageal reflux disease without esophagitis; E11.9 Type 2 diabetes mellitus without complications; E03.9 Hypothyroidism, unspecified; I25.2 Old myocardial infarction; E66.9 Obesity, unspecified; Z68.43 Body mass index [BMI] 50.0-59.9, adult; Z88.1 Allergy status to other antibiotic agents; Z91.011 Allergy to milk products; Z88.5 Allergy status to narcotic agent; Z91.013 Allergy to seafood; Z79.84 Long term (current) use of oral hypoglycemic drugs; Z79.899 Other long term (current) drug therapy
CPT/HCPCS: 36415; 80053; 81003; 85025; 99284; A9270-GY

== ENCOUNTER 2020-05-04 20:00 | Emergency (ER) | payer MEDICAID ==
[2020-05-04] MEDS ORDERED: Ondansetron 4 MG Tab.DIS PO ONE (20:11)
[2020-05-04 20:26] VITALS: BP 145/92; PULSE 85
[2020-05-04] MEDS ORDERED: Diazepam 5 MG Tab PO ONE ×2 (20:48→21:07)
[2020-05-04] MEDS ORDERED: Aspirin 81 MG Tab.Chew PO ONE (20:50)
[2020-05-04 21:02] LABS: ANION GAP 12.8 mmol/L (5-15); CHLORIDE,CL 102 mmol/L (98-115); SODIUM,NA 138 mmol/L (136-145)
--- NOTE | 2020-05-04 21:14 | EDM.PDOCBH ---
ED HPI GENERAL MEDICAL PROBLEM - General Chief Complaint: Chest Pain Stated Complaint: CHEST PAIN, panic attack Time Seen by Provider: 05/04/20 20:15 Source of Information: Reports: Patient History Limitations: Reports: No Limitations - History of Present Illness Onset: Today, Sudden Onset Date: 05/04/20 Onset Time: 20:00 Duration: Minutes:, Improving Location: Reports: Chest Quality: Reports: Pressure, Same as Previous Episode Severity: Moderate Improves with: Reports: Medication Worsens with: Reports: None Associated Symptoms: Reports: Chest Pain (chest tightness), Nausea/Vomiting. Denies: Diaphoresis, Shortness of Breath Treatments PLATFORM MAN: Reports: Other (see below) (home meds) Lower Mid-Sternal Chest Pain Score (Numeric/FACES): 7 - Related Data Allergies Allergy/AdvReac Type Severity Reaction Status Date / Time azithromycin Allergy Hives Verified 01/23/20 20:07 [From Zithromax Z-Walt] Influenza Virus Vaccines Allergy Cannot Verified 01/23/20 20:07 Remember shellfish derived Allergy Anaphylactic Verified 01/23/20 20:07 Shock tramadol Allergy Hives Verified 01/23/20 20:07 Home Meds: Home Meds PNV95/Ferrous Fumarate/FA [ Multivitamins] 1 tab PO DAILY 08/14/14 [History] Albuterol Sulfate [Proair Hfa] 2 puff IH Q4H PRN 01/07/20 [History] Cholecalciferol (Vitamin D3) [Vitamin D3] 4,000 unit PO DAILY 01/07/20 [History] Fluticasone Propionate [Flonase] 1 sprays NASBOTH BID 01/07/20 [History] Fluticasone/Salmeterol [Advair 500-50] 1 puff INH BID 01/07/20 [History] Levothyroxine Sodium 88 mcg PO DAILY 01/07/20 [History] Loratadine [Claritin] 10 mg PO DAILY 01/07/20 [History] buPROPion HCL [Bupropion Xl] 450 mg PO DAILY 01/07/20 [History] metFORMIN HCl [Metformin HCl] 500 mg PO BID 01/07/20 [History] risperiDONE 2 mg PO BEDTIME 01/23/20 [History] Flaxseed Oil [Flaxseed] 1,000 mg PO DAILY 05/04/20 [History] Magnesium Oxide [Magnesium] 500 mg PO DAILY 05/04/20 [History] Omeprazole 20 mg PO DAILY 05/04/20 [History] Vitamin B Complex [B Complex] 1 tab PO DAILY 05/04/20 [History] hydrOXYzine pamoate [Hydroxyzine Pamoate] 50 mg PO Q6H PRN 05/04/20 [History] Past Medical History HEENT History: Reports: Impaired Vision, Otitis Media Cardiovascular History: Reports: Hypertension Other Cardiovascular History: EKG changes indicating past [place] Respiratory History: Reports: Asthma Gastrointestinal History: Reports: GERD Genitourinary History: Reports: None ENTERTAINMENT PRODUCTION PROFESSIONAL History: Reports: Polycystic Ovaries, , Other (See Below) Other ENTERTAINMENT PRODUCTION PROFESSIONAL History: uses a diaphragm Musculoskeletal History: Reports: Arthritis, Back Pain, Chronic, Neck Pain, Chronic, Other (See Below) Other Musculoskeletal History: trigeminal neuralgia, chronic knee and back pain, restless leg syndrome Neurological History: Reports: Headaches, Chronic, Migraines, Other (See Below) Other Neuro History: trigeminal neuralgia Psychiatric History: Reports: Anxiety, Bipolar, Schizophrenia Endocrine/Metabolic History: Reports: Diabetes, Type II, Hypothyroidism, Obesity/BMI 30+ Hematologic History: Reports: Other (See Below) Other Hematologic History: 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 - Infectious Disease History Infectious Disease History: Reports: Chicken Pox, Influenza - Past Surgical History Head Surgeries/Procedures: Reports: None HEENT Surgical History: Reports: None Respiratory Surgical History: Reports: None GI Surgical History: Reports: None Neurological Surgical History: Reports: None Musculoskeletal Surgical History: Reports: None Social & Family History - Family History Family Medical History: Noncontributory - Caffeine Use Caffeine Use: Reports: Coffee, Soda ED ROS GENERAL - Review of Systems Review Of Systems: See Below Constitutional: Denies: Fever, Chills, Diaphoresis HEENT: Reports: No Symptoms Respiratory: Denies: Shortness of Breath, Wheezing, Cough Cardiovascular: Reports: Chest Pain. Denies: Blood Pressure Problem, Claudication, Dyspnea on Exertion, Lightheadedness, Orthopnea, Palpitations, Syncope Endocrine: Reports: High Glucose GI/Abdominal: Denies: Abdominal Pain, Diarrhea : Reports: No Symptoms Musculoskeletal: Reports: No Symptoms Skin: Reports: No Symptoms Neurological: Reports: No Symptoms ED EXAM, BEHAVIORAL HEALTH - Physical Exam Exam: See Below Exam Limited By: No Limitations General Appearance: Alert, No Apparent Distress, Obese Eye Exam: Bilateral Eye: EOMI, PERRL Ears: Hearing Grossly Normal Nose: Normal Inspection Throat/Mouth: Normal Inspection, Normal Voice, No Airway Compromise. No: Normal Teeth Head: Atraumatic Neck: Normal Inspection, Supple, Non-Tender, Full Range of Motion Respiratory/Chest: No Respiratory Distress, Lungs Clear, Normal Breath Sounds, No Accessory Muscle Use, Chest Non-Tender Cardiovascular: Normal Peripheral Pulses, Regular Rate, Rhythm, No JVD, No Murmur GI/Abdominal: Soft, Non-Tender Back Exam: Normal Inspection Extremities: Normal Inspection, Normal Range of Motion Neurological: Alert, No Motor/Sensory Deficits, Oriented x 3 Psychiatric: Alert, Normal Cognition, Normal Mood, Oriented, Flat Affect Skin Exam: Warm, Dry, Intact, Normal color, No rash Comments: Chest x-ray portable: Findings: The lungs are clear. The heart size is normal. No acute fracture. Impression: No acute findings EKG INTERPRETATION EKG Date: 05/04/20 Time: 20:48 Rhythm: NSR Rate (Beats/Min): 76 [place]: Normal P-Wave: Present QRS: Normal ST-T: Normal QT: Normal Comparison: NA - No Prior EKG EKG Interpretation Comments: Normal sinus rhythm Possible inferior infarct, age undetermined Abnormal ECG COURSE, BEHAVIORAL HEALTH COMP - Course Vital Signs: Last Vital Signs Temp 97 F 05/04/20 20:21 Pulse 85 05/04/20 20:21 Resp 20 05/04/20 20:21 BP 145/92 H 05/04/20 20:21 Pulse Ox 98 05/04/20 20:21 Orders, Labs, Meds: Active Orders 24 hr Category Date Time Status EKG Documentation Completion [RC] ASDIRECTED Care 05/04/20 20:41 Active CXR [Chest 1V Frontal] [CR] Stat Exams 05/04/20 20:51 Ordered UA W/MICROSCOPIC [URIN] Stat Lab 05/04/20 20:33 Ordered EKG 12 Lead [EK] Stat Ther 05/04/20 20:41 Ordered Laboratory Tests 05/04/20 05/04/20 05/04/20 Range/Units 20:16 20:16 20:16 WBC 9.71 (5.00-10.00) 10^3/uL RBC 4.58 (3.80-5.50) 10^6/uL Hgb 13.5 (12.0-16.0) g/dL Hct 39.2 (37.0-47.0) % MCV 85.6 (82.0-92.0) fL MCH 29.5 (27.0-31.0) pg MCHC 34.4 (32.0-36.0) g/dL RDW 13.1 (11.5-14.5) % Plt Count 203 (150-400) 10^3/uL MPV 10.0 (7.4-10.4) fL Immature Gran % (Auto) 0.2 (0.0-5.0) % Neut % (Auto) 65.5 (50.0-70.0) % Lymph % (Auto) 26.6 (20.0-40.0) % [place] % (Auto) 6.1 (2.0-8.0) % Eos % (Auto) 1.3 (1.0-3.0) % Baso % (Auto) 0.3 (0.0-1.0) % Neut # (Auto) 6.36 (2.50-7.00) 10^3/uL Lymph # (Auto) 2.58 (1.00-4.00) 10^3/uL [place] # (Auto) 0.59 (0.10-0.80) 10^3/uL Eos # (Auto) 0.13 (0.10-0.30) 10^3/uL Baso # (Auto) 0.03 (0.00-0.10) 10^3/uL Immature Gran # (Auto) 0.02 (0.00-0.50) 10^3/uL D-Dimer, Quantitative (<400) ng/mL Sodium 138 (136-145) mmol/L Potassium 3.7 (3.3-5.3) mmol/L Chloride 102 (98-115) mmol/L Carbon Dioxide 26.9 (21.0-32.0) mmol/L Anion Gap 12.8 (5-15) mmol/L BUN 17 (6-25) mg/dL Creatinine 1.01 (0.51-1.17) mg/dL Est Cr Clr Drug Dosing 71.96 mL/min Estimated GFR (MDRD) > 60 mL/min Glucose 106 H (75 - 99) mg/dL Calcium 8.7 (8.7-10.3) mg/dL Troponin I < 0.04 (0.00-0.070) ng/mL HCG, Qual (NEGATIVE) 05/04/20 05/04/20 Range/Units 20:16 20:16 WBC (5.00-10.00) 10^3/uL RBC (3.80-5.50) 10^6/uL Hgb (12.0-16.0) g/dL Hct (37.0-47.0) % MCV (82.0-92.0) fL MCH (27.0-31.0) pg MCHC (32.0-36.0) g/dL RDW (11.5-14.5) % Plt Count (150-400) 10^3/uL MPV (7.4-10.4) fL Immature Gran % (Auto) (0.0-5.0) % Neut % (Auto) (50.0-70.0) % Lymph % (Auto) (20.0-40.0) % [place] % (Auto) (2.0-8.0) % Eos % (Auto) (1.0-3.0) % Baso % (Auto) (0.0-1.0) % Neut # (Auto) (2.50-7.00) 10^3/uL Lymph # (Auto) (1.00-4.00) 10^3/uL [place] # (Auto) (0.10-0.80) 10^3/uL Eos # (Auto) (0.10-0.30) 10^3/uL Baso # (Auto) (0.00-0.10) 10^3/uL Immature Gran # (Auto) (0.00-0.50) 10^3/uL D-Dimer, Quantitative 139 (<400) ng/mL Sodium (136-145) mmol/L Potassium (3.3-5.3) mmol/L Chloride (98-115) mmol/L Carbon Dioxide (21.0-32.0) mmol/L Anion Gap (5-15) mmol/L BUN (6-25) mg/dL Creatinine (0.51-1.17) mg/dL Est Cr Clr Drug Dosing mL/min Estimated GFR (MDRD) mL/min Glucose (75 - 99) mg/dL Calcium (8.7-10.3) mg/dL Troponin I (0.00-0.070) ng/mL HCG, Qual Negative (NEGATIVE) Medications Discontinued Medications Generic Name Dose Route Start Last Admin Trade Name Allanq PRN Reason Stop Dose Admin Aspirin 324 mg 05/04/20 20:50 05/04/20 21:09 Aspirin PO 05/04/20 20:51 324 mg ONETIME ONE Administration Diazepam 10 mg 05/04/20 20:48 Valium. PO 05/04/20 20:49 ONETIME ONE Diazepam 5 mg 05/04/20 21:07 05/04/20 21:11 Valium. PO 05/04/20 21:08 5 mg ONETIME ONE Administration Ondansetron HCl 4 mg 05/04/20 20:11 05/04/20 20:21 Zofran Odt PO 05/04/20 20:12 4 mg ONETIME ONE Administration Departure - Departure Time of Disposition: 22:17 Disposition: Home, Self-Care 01 Clinical Impression: Panic attack, Sensation of chest pressure - Discharge Information Instructions: Panic Attack, [id number], Angina, [id number] Referrals: Pilar Escobar, LIFE SCIENCE TEACHER [Primary Care Provider] - Forms: ED Department Discharge Sepsis Event Note (ED) - Evaluation Sepsis Screening Result: No Definite Risk - Focused Exam Vital Signs: Vital Signs Temp Pulse Resp BP Pulse Ox 05/04/20 20:21 97 F 85 20 145/92 H 98 - My Orders Last 24 Hours: My Active Orders 05/04/20 20:33 UA W/MICROSCOPIC [URIN] Stat 05/04/20 20:41 EKG Documentation Completion [RC] ASDIRECTED EKG 12 Lead [EK] Stat 05/04/20 20:51 CXR [Chest 1V Frontal] [CR] Stat - Assessment/Plan Last 24 Hours: My Active Orders 05/04/20 20:33 UA W/MICROSCOPIC [URIN] Stat 05/04/20 20:41 EKG Documentation Completion [RC] ASDIRECTED EKG 12 Lead [EK] Stat 05/04/20 20:51 CXR [Chest 1V Frontal] [CR] Stat Assessment:: 1. Panic attack 2. Sensation of chest pressure Plan: 1.You feel that this was a similar episode to you have an previous panic attack. Your are doing better. In addition we did a cardiac workup which included an EKG to read your heart rhythm and lab work including a troponin to see if any cardiac enzymes are elevated. These all looked benign. Your chest x-ray looks good. 2. If feeling much better with giving you the 5 mg of Valium which may help reduce anxiety. 3. Recommend following up with your regular medical provider next week for a checkup. 4. Few have return his symptoms that are not relieved with your red her regular medications and they include you having chest tightness, shortness of breath, numbness tingling down your left arm, neck pain, nausea vomiting, back pain you should return to the emergency room for further evaluation.
--- NOTE | 2020-05-05 08:36 | CR ---
[id number] RAD/RAD Chest Portable EXAM: RAD Chest Portable INDICATION: CHEST PAIN COMPARISON: 2017. DISCUSSION: Cardiomediastinal silhouette is normal in size and contour. No infiltrate, effusion, pneumothorax, or edema. IMPRESSION: Negative examination of the chest. Sadi Dunne MD 05/05/20 0802 Thank you for allowing us to participate in the care of your patient.
== END 2020-05-04 22:20 | disposition home or self-care (01) ==
LOC: KA.ED 20:00
DX: F41.0 Panic disorder [episodic paroxysmal anxiety] (principal); I10 Essential (primary) hypertension; K21.9 Gastro-esophageal reflux disease without esophagitis; J45.909 Unspecified asthma, uncomplicated; F31.9 Bipolar disorder, unspecified; F20.9 Schizophrenia, unspecified; E11.9 Type 2 diabetes mellitus without complications; E03.9 Hypothyroidism, unspecified; E66.9 Obesity, unspecified; Z88.1 Allergy status to other antibiotic agents; Z88.7 Allergy status to serum and vaccine; Z88.6 Allergy status to analgesic agent; Z91.013 Allergy to seafood; Z79.899 Other long term (current) drug therapy; Z68.43 Body mass index [BMI] 50.0-59.9, adult
CPT/HCPCS: 36415; 71045; 80048; 84484; 84703; 85025; 85379; 93005; 99284; 99285-25; A9270-GY

== ENCOUNTER 2023-01-06 07:08 | Day surgery (SDC) | payer MEDICAID ==
[~2023-01-06 07:08] MED LIST: Sodium Chloride 0.45% 1,000 ML IV SCH; Sodium Chloride 0.9% 10 ML Syringe FLUSH PRN
[2023-01-06] MEDS ORDERED: Midazolam 1 MG/ML 2 ML SDV ONE (08:33)
[2023-01-06] MEDS ORDERED: Propofol 200 MG/20 ML SDV ONE (08:34)
[2023-01-06] MEDS ORDERED: Scopolamine 1.5 MG Transdermal Patch ONE (08:38)
[2023-01-06 10:56] VITALS: BP 113/61; PULSE 69
== END 2023-01-06 12:00 | disposition home or self-care (01) ==
LOC: KA.SDS 07:08
PROVIDERS: ATTEND Family Medicine
DX: K52.9 Noninfective gastroenteritis and colitis, unspecified (principal); K63.5 Polyp of colon; K64.4 Residual hemorrhoidal skin tags; E78.00 Pure hypercholesterolemia, unspecified; K21.9 Gastro-esophageal reflux disease without esophagitis; K76.0 Fatty (change of) liver, not elsewhere classified; E66.01 Morbid (severe) obesity due to excess calories; E11.9 Type 2 diabetes mellitus without complications; E03.9 Hypothyroidism, unspecified; N39.46 Mixed incontinence; F41.1 Generalized anxiety disorder; G89.4 Chronic pain syndrome; J45.50 Severe persistent asthma, uncomplicated; R89.3 Abnormal level of substances chiefly nonmedicinal as to source in specimens from other organs, systems and tissues; I25.83 Coronary atherosclerosis due to lipid rich plaque; S89.91XA Unspecified injury of right lower leg, initial encounter; Z79.84 Long term (current) use of oral hypoglycemic drugs; Z79.899 Other long term (current) drug therapy; Z79.82 Long term (current) use of aspirin; Z88.2 Allergy status to sulfonamides; Z88.7 Allergy status to serum and vaccine; Z88.1 Allergy status to other antibiotic agents; Z88.5 Allergy status to narcotic agent; Z68.43 Body mass index [BMI] 50.0-59.9, adult; X58.XXXA Exposure to other specified factors, initial encounter
CPT/HCPCS: 00811; 81025; 82947; A9270-GY; J2250; J2704; J7030